=== PATIENT | male | born 1970 | race Asian ===

== ENCOUNTER 2023-03-07 01:20 | Day surgery (SDC) | payer OTHER, SELFPAY ==
[2023-02-21 11:25] VITALS: BMI 25.4
--- NOTE | 2023-03-06 14:02 | P.HP_ITS ---
History of Present Illness History of Present Illness Consent: Risks, benefits, and alternatives have been discussed and questions answered. Patient agrees to proceed with procedure. Chief complaint: family hx colon ca Narrative: Josh Taylor is a 52 year old male referred for colon cancer screening. His father has stage III colon cancer. [facility] Social History Social History Smoking status: Never smoker Alcohol intake: current Drinks per week: 3 Substance use: never Substance use type: does not use Living arrangements: with family Spiritual care concerns: No Meds Home Medications and Allergies Home Medications Medication Instructions Recorded Confirmed Type No Home Medications 02/21/23 02/21/23 History Allergies Allergy/AdvReac Type Severity Reaction Status Date / Time No Known Allergies Allergy Unverified 03/07/23 07:37 Assessment and Plan Assessment and plan (1) Colon cancer screening: Code(s): Z12.11 - Encounter for screening for malignant neoplasm of colon Status: Acute Assessment and Plan: Colonoscopy with possible biopsy or polypectomy or cautery or injection of substances.
[2023-03-07 07:38] VITALS: BP 127/99; PULSE 72; RESP 20; TEMP 36.2; O2SAT 96
[2023-03-07] MEDS: LACTATED RINGERS 1,000 ML 150 ML IV CONT (07:47)
--- NOTE | 2023-03-07 07:58 | WPDANESEPPF ---
Anes - Initial Pre Proc Eval Procedure: Operation Date: 03/07/23 08:30 Proposed Procedures p Colonoscopy - Karri Rivas MD Date/Time: 03/07/23 07:58 Surgeon: Karri Rivas MD Pre Op Diagnosis: family hx colon ca Patient Data Age: 52 Gender: M Height: 1.75 m Weight: 76.3 kg Last Vital Signs Temp 97.2 F L 03/07/23 07:38 Pulse 72 03/07/23 07:38 Resp 20 03/07/23 07:38 BP 127/99 H 03/07/23 07:38 Pulse Ox 96 03/07/23 07:38 O2 Del Method Room Air 03/07/23 07:38 Allergies Allergy/AdvReac Type Severity Reaction Status Date / Time No Known Allergies Allergy Unverified 03/07/23 07:37 Home Medications Medication Instructions Recorded Confirmed Type No Home Medications 02/21/23 02/21/23 History Patient hx anesthesia problems: none Family hx anesthesia problems: none Results Review: All pre-operative results and documents have been reviewed as part of the pre-operative evaluation. [facility] Social History Social History Smoking status: Never smoker Alcohol intake: current Drinks per week: 3 Substance use: never Substance use type: does not use Living arrangements: with family Spiritual care concerns: No Anes - Eval Final PreProcedure Day of Procedure 03/07/23 07:58 Patient weight: normal Heart: regular rate and rhythm Lungs: clear to auscultation Airway: Mallampati scale class II Neurological: alert and oriented Last oral intake: >/= 8 hours ASA classification: I Emergent: no Anesthetic plan: proceed Anesthesia type and monitoring: general GIVS and standard monitoring Results Review: All pre-operative results and documents have been reviewed as part of the pre-operative evaluation. Informed Consent: The patient's anesthetic plan and its attendant risks and benefits were discussed with the patient/family/POA. Questions were solicited and answers provided to the satisfaction of the patient/family/POA.
[2023-03-07 08:36] VITALS: BP 108/77; PULSE 84; RESP 15; O2SAT 98
[2023-03-07 08:46] VITALS: BP 115/71; PULSE 88; RESP 20; O2SAT 100
[2023-03-07 08:56] VITALS: BP 113/81; PULSE 80; RESP 18; O2SAT 98
== END 2023-03-07 09:00 | disposition home or self-care (01) ==
PROVIDERS: PCP Internal Medicine; Visit Provider Internal Medicine Gastroenterology
PROC: 0DJD8ZZ Inspection of Lower Intestinal Tract, Via Natural or Artificial Opening Endoscopic (ICD-10-PCS; CPT 45378; principal; 2023-03-07 08:30)
DX: Z12.11 Encounter for screening for malignant neoplasm of colon (principal); Z80.0 Family history of malignant neoplasm of digestive organs
CPT/HCPCS: 45378; J2704; J7120